=== PATIENT | female | born 1970 | race Two or more races ===

== ENCOUNTER → 2018-07-01 | Outpatient (CLI) | payer OTHER ==
--- NOTE | 2018-07-01 20:52 | HKNOTE ---
DATE OF SERVICE: 07/01/2018 CHIEF COMPLAINT: Right knee pain. HISTORY OF PRESENT ILLNESS: Ms. Back is a 48-year-old female complaining of chronic right knee pa in. The pain is worsening. She does not use any assistive devices. She has had previous pain medic ations and cortisone injections of her right knee which provided a 4-month pain relief. The pain is interfering with her activities of daily living. PAST MEDICAL HISTORY: Breast cancer in remission. MEDICATIONS: Multivitamins. PAST SURGICAL HISTORY: None. SOCIAL HISTORY: Denies tobacco, alcohol use. ALLERGIES: NONE. PHYSICAL EXAMINATION: GAIT: Nonantalgic gait, reciprocal gait pattern. RIGHT KNEE: Neutral alignment. Tender over the medial joint line, 0 to 120 degrees range of motion, stable to varus and valgus stress, negative Eden, negative anterior drawer, negative posterior dr awer, negative Ava's, 5/5 strength to quadriceps of his anterior gastric soleus. X-RAYS RIGHT KNEE: X-rays of right knee demonstrate tricompartmental degenerative changes with loss of joint space, primarily in the medial compartment. There are no fractures or dislocations. IMPRESSION: A 53-year-old female with right knee osteoarthritis. PLAN: We will request authorization for right knee steroid injection. She will follow up in my [facility] office within 6 weeks. Dictated By: JOSE ELIAS SWAN/AUDREY Conf#: [id number] DID#: [id number]
--- NOTE | 2018-07-03 11:29 | RADRPT ---
PROCEDURE: XR Knee. CLINICAL INDICATION: PAIN TECHNIQUE: 4 views of the right knee were obtained. The images reviewed on a PACS workstation. COMPARISON: None. FINDINGS: No evidence of acute fracture or dislocation. Moderate tricompartmental arthrosis with joint space na rrowing and marginal osteophyte formation, most pronounced at the medial and patellofemoral compartme nts. Small joint effusion. IMPRESSION: Moderate tricompartmental osteoarthritis with small joint effusion. RPTAT:AAJJ Lashawn Lozano Physician Date Time Electronically viewed and signed by Lashawn Lozano Physician on 07/03/2018 11:28 RF/
== END | disposition home or self-care (01) ==
LOC: HKI 15:17
PROVIDERS: ATTEND Orthopaedic Surgery Adult Reconstructive Orthopaedic Surgery
DX: M17.11 Unilateral primary osteoarthritis, right knee (principal); Z85.3 Personal history of malignant neoplasm of breast
CPT/HCPCS: 73564; Z7500; G0463